=== PATIENT | female | born 1970 | race Caucasian/White ===

== ENCOUNTER 2016-09-26 12:33 | Outpatient (CLI) | payer OTHER | END 2016-09-26 12:34 | disposition home or self-care (01) | LOC: NC 12:33 | PROVIDERS: ATTEND Nurse Practitioner Family | DX: E11.9 Type 2 diabetes mellitus without complications (principal); E66.3 Overweight; Z71.3 Dietary counseling and surveillance ==

== ENCOUNTER 2016-10-04 15:01 | Outpatient (CLI) | payer OTHER | END 2016-10-04 15:02 | disposition home or self-care (01) | LOC: NC 15:01 | PROVIDERS: ATTEND Nurse Practitioner Family | DX: E11.9 Type 2 diabetes mellitus without complications (principal); Z71.3 Dietary counseling and surveillance; F50.89 Other specified eating disorder; E66.3 Overweight ==